=== PATIENT | female | born 1980 | race Asian ===

== ENCOUNTER 2016-09-16 21:05 | Emergency (ER) | payer OTHER ==
[2016-09-16 21:12] VITALS: BP 102/77; PULSE 71; RESP 16; TEMP 97.5; O2SAT 99
--- NOTE | 2016-09-16 21:34 | EDPHY ---
H & P Stated Complaint: suprapubic pain, urinary freq, similar to prior UTI Time Seen by Provider: 09/16/16 21:28 HPI/ROS: CHIEF COMPLAINT: Possible urinary tract infection HISTORY OF PRESENT ILLNESS: 36-year-old female complaining of cystitis like symptoms, increased frequency, dysuria since this morning. No back or flank pain. No nausea or vomiting. No fever or chills. No flu-like symptoms. PRIMARY CARE PROVIDER: Dr. Bonnie Barreto REVIEW OF SYSTEMS: A ten point review of systems was performed and is negative with the exception of the items mentioned in the HPI PAST MEDICAL & SURGICAL HISTORY: No pertinent medical or surgical history SOCIAL HISTORY: Works in the [employer] PHYSICAL EXAM (Prior to examination, patient consented to physical exam, hands were washed and my usual and customary physical exam procedures followed) 1) GENERAL: Well-developed, well-nourished, alert and oriented. AppearsNontoxic . 2) HEAD: Normocephalic, atraumatic 3) HEENT: Pupils equal, round, reactive to light bilaterally. Sclera anicteric. 4) NECK: Full range of motion, no meningeal signs. 5) LUNGS: Clear auscultation bilaterally, no wheezes, no rhonchi, no retractions. 6) HEART: Regular rate and rhythm, no murmur, no heave, no gallop. 7) ABDOMEN: No guarding, no rebound, no focal tenderness, negative McBurney's, negative Power's, negative Rovsing's, negative peritoneal sign, 8) MUSCULOSKELETAL: Moving all extremitie 9) BACK: No CVA tenderness 10) SKIN: No rash, no petechiae. 11) Psychiatric: Patient is oriented X 3, there is no agitation. DIFFERENTIAL DIAGNOSIS: in no particular order including but limited to cystitis, pyelonephritis, urosepsis - Personal History LMP (Females 10-55): 8-14 Days Ago Current Tetanus/Diphtheria Vaccine: Yes Current Tetanus Diphtheria and Acellular Pertussis (TDAP): Yes - Medical/Surgical History Hx Asthma: No Hx Chronic Respiratory Disease: No Hx Diabetes: No Hx Cardiac Disease: No Hx Renal Disease: No Hx Cirrhosis: No Hx Alcoholism: No Hx HIV/AIDS: No Hx Splenectomy or Spleen Trauma: No Other PMH: excercise induced asthma - Social History Smoking Status: Never smoked Constitutional: Initial Vital Signs Temperature (C) 36.4 C 09/16/16 21:09 Heart Rate 71 09/16/16 21:09 Respiratory Rate 16 09/16/16 21:09 Blood Pressure 102/77 09/16/16 21:09 O2 Sat (%) 99 09/16/16 21:09 O2 Delivery Mode Room Air Allergies/Adverse Reactions: amoxicillin [Amoxicillin] Allergy (Verified 03/05/13 02:06) tetracycline [Tetracycline] Allergy (Verified 03/05/13 02:06) many other abx Allergy (Uncoded 09/16/16 21:13) Rash Home Medications: Medication Instructions Recorded [place] Thyroid 08/16/15 Cephalexin [Keflex] 500 mg PO QID 7 Days 09/16/16 Phenazopyridine HCl [Pyridium] 200 mg PO PC #10 tab 09/16/16 Medical Decision Making ED Course/Re-evaluation: I feel the patient can be treated on an outpatient basis as I believe her to be a competent decision-maker, sheshows no signs of urosepsis, afebrile, no comorbid medical conditions. She states that she has been able to tolerate Keflex without adverse or allergic reaction in the past. Nonetheless, I have provided acute urinary tract infection red flag signs and symptoms precautions, and reasons to return to the emergency department. The patient understands that this diagnosis is provisional and can never be 100% accurate. Usual and customary warnings were given concerning the clinical impression and all the patient's questions were answered. The patient was instructed to return to the emergency department should her symptoms worsen or return, or develop any new symptoms, otherwise to followup as directed in discharge instructions. - Data Points Laboratory Results: 09/16/16 09/16/16 21:40 21:28 Urine Color Pending Urine Appearance Pending Urine pH Pending Ur Specific [place] Pending Urine Protein Pending Urine Ketones Pending Urine Blood Pending Urine Nitrate Pending Urine Bilirubin Pending Urine Urobilinogen Pending Ur Leukocyte Esterase Pending Urine RBC Pending Urine WBC Pending Ur Epithelial Cells Pending Urine Glucose Pending Urine Test NEGATIVE Medications Given: Discontinued Medications Cephalexin (Keflex 500 Mg Prepack#4) 1 [facility]N Reason: Protocol Stop: 09/16/16 21:43 Last Admin: 09/16/16 21:54 Dose: 1 btl Ibuprofen (Motrin) 600 mg PO EDNOW ONE Stop: 09/16/16 21:50 Last Admin: 09/16/16 21:55 Dose: 600 mg Phenazopyridine HCl (Pyridium) 200 mg PO EDNOW ONE Stop: 09/16/16 21:50 Last Admin: 09/16/16 21:55 Dose: 200 mg Departure - Departure Disposition: Home, Routine, Self-Care Clinical Impression: Cystitis Condition: Good Instructions: Urinary Tract Infection in Women (ED) Additional Instructions: Return to the ER immediately if you experience fevers/chills, flu like symptoms , inability to tolerate oral intake, nausea or vomiting, or any other symptoms that concern you. Referrals: Bonnie Barreto MD [Primary Care Provider] - 5-7 days, call for appt. Prescriptions: Cephalexin [Keflex] 500 mg PO BID 7 Days Phenazopyridine HCl [Pyridium] 200 mg PO PC #10 tab
[2016-09-16] MEDS ORDERED: IBUPROFEN 600 MG TAB PO ONE ×2 (21:41→21:49)
[2016-09-16] MEDS ORDERED: CEPHALEXIN 500MG PREPACK#4 BTL TAKEHOME ONE (21:42)
[2016-09-16] MEDS ORDERED: PHENAZOPYRIDINE HCL 200 MG TAB PO ONE (21:49)
[2016-09-16 21:50] LABS: COLOR YELLOW; LEUKOCYTE ESTERASE,URINE 3+ (NEGATIVE); NITRITE,URINE NEGATIVE (NEGATIVE)
[2016-09-16 22:05] LABS: BACTERIA TRACE /hpf (NONE SEEN); RBC,URINE 50-182 /hpf (0-3); WBC,URINE 50-182 /hpf (0-3)
== END 2016-09-16 22:13 | disposition home or self-care (01) ==
DX: N30.90 Cystitis, unspecified without hematuria (principal); J45.909 Unspecified asthma, uncomplicated; B96.20 Unspecified Escherichia coli [E. coli] as the cause of diseases classified elsewhere